=== PATIENT | male | born 1965 | race Caucasian/White ===

== ENCOUNTER → 2023-12-21 15:24 | Outpatient (REF) | payer OTHER, SELFPAY | LOC: HWRAD 15:24 | PROVIDERS: ATTENDING PHYSICIAN Family Medicine | DX: M54.2 Cervicalgia (principal); M43.6 Torticollis | CPT/HCPCS: 72050 ==

== ENCOUNTER 2024-04-18 06:29 | Day surgery (SDC) | payer OTHER, SELFPAY | END 2024-04-18 11:32 | disposition home or self-care (01) | LOC: GI 06:29 | PROVIDERS: ATTENDING PHYSICIAN Internal Medicine | DX: Z12.11 Encounter for screening for malignant neoplasm of colon (principal); K64.9 Unspecified hemorrhoids; D12.0 Benign neoplasm of cecum; D12.5 Benign neoplasm of sigmoid colon; Z86.0101 Personal history of adenomatous and serrated colon polyps | CPT/HCPCS: 45380; 45385; 88305 ==

== ENCOUNTER 2024-06-20 15:58 | Outpatient (RCR) | payer OTHER, SELFPAY | END 2024-06-20 23:59 | disposition home or self-care (01) | LOC: RPT 15:58 | PROVIDERS: ATTENDING PHYSICIAN Orthopaedic Surgery; FAMILY PHYSICIAN Family Medicine | DX: M47.812 Spondylosis without myelopathy or radiculopathy, cervical region (principal); Z73.6 Limitation of activities due to disability | CPT/HCPCS: 97110; 97112; 97162; 97530 ==

== ENCOUNTER → 2024-07-10 12:58 | Outpatient (REF) | payer OTHER, SELFPAY | LOC: DHSLP 12:58 | PROVIDERS: ATTENDING PHYSICIAN Internal Medicine | DX: G47.33 Obstructive sleep apnea (adult) (pediatric) (principal); R40.0 Somnolence; R06.83 Snoring; E66.9 Obesity, unspecified; Z68.33 Body mass index [BMI] 33.0-33.9, adult | CPT/HCPCS: 95800 ==

== ENCOUNTER 2024-07-13 15:40 | Outpatient (RCR) | payer OTHER, SELFPAY | END 2024-07-13 23:59 | disposition home or self-care (01) | LOC: RPT 15:40 | PROVIDERS: ATTENDING PHYSICIAN Orthopaedic Surgery; FAMILY PHYSICIAN Family Medicine | DX: M47.812 Spondylosis without myelopathy or radiculopathy, cervical region (principal); Z73.6 Limitation of activities due to disability | CPT/HCPCS: 97110; 97112; 97140 ==

== ENCOUNTER → 2024-10-15 13:27 | Outpatient (REF) | payer OTHER, SELFPAY | LOC: PAVMRI 13:27 | PROVIDERS: ATTENDING PHYSICIAN Orthopaedic Surgery; FAMILY PHYSICIAN Family Medicine | DX: M47.812 Spondylosis without myelopathy or radiculopathy, cervical region (principal) | CPT/HCPCS: 72141 ==